=== PATIENT | male | born 1960 | race Caucasian/White ===

== ENCOUNTER → 2016-08-04 | Day surgery (SDC) | payer BC ==
[~2016-08-04] MED LIST: Lactated Ringers 1,000 ML IV SCH; Lactated Ringers 1,000 ML ONE; Propofol 200 MG/20 ML SDV IV ONE
[2016-08-04 14:13] VITALS: BP 108/76
--- NOTE | 2016-08-04 15:39 | OR ---
DATE OF OPERATION: 08/04/2016 PREOPERATIVE DIAGNOSIS: FOLLOWUP POLYPS. POSTOPERATIVE DIAGNOSIS: FOLLOWUP POLYPS. SURGEON: Isaac Myers MD PROCEDURE: FULL-LENGTH COLONOSCOPY WITH POLYP REMOVAL X1. ANESTHESIA: CIVIL ENGINEERING TECHNICIAN. COMPLICATIONS: None. SPECIMEN: Tubular adenoma, hepatic flexure. FINDINGS: 1. Full-length colonoscopy. 2. Bolton diverticulosis, mild. 3. Tubular adenoma x1, less than 0.5 cm. RECOMMENDATIONS: Followup colonoscopy in 5 years. INDICATIONS: The patient had multiple polyps removed 2 years ago, was in for a followup scope. DESCRIPTION OF PROCEDURE: The patient was prepped and draped, placed in left lateral decubitus position. A lubricated Olympus colonoscope was inserted and easily advanced to the cecum. Direct visualization of the ileocecal valve and appendiceal orifice was accomplished. The bowel prep was adequate. Upon withdrawal of the cecal pouch, ascending colon were benign. Just past the hepatic flexure, the patient had a flat tubular adenoma appearing polyp may be hyperplastic as well, removed with cold forceps biopsy x3 in its entirety. Resolution of bleeding was spontaneous. The rest of the transverse, descending colon were benign. The patient does have diverticula extending from the hepatic flexure, all the way through the rectosigmoid junction, very mild in severity without any acute inflammatory change. Left-sided colon had no polyps, mass, ulceration, or bleeding sites. No vascular abnormalities or signs of colitis. The rectal vault was unremarkable. Prominent hemorrhoidal tissue was seen. Retroflexion showed no perianal lesions. Air was then suctioned. Scope was removed without complication. RAYNE/KIMBERLY /[id number]
== END ==
LOC: CC.SDS 11:56
PROVIDERS: ATTEND Family Medicine
DX: Z12.11 Encounter for screening for malignant neoplasm of colon (principal); D12.3 Benign neoplasm of transverse colon; I10 Essential (primary) hypertension; Z88.2 Allergy status to sulfonamides; Z79.899 Other long term (current) drug therapy; Z98.890 Other specified postprocedural states; Z72.0 Tobacco use; Z91.011 Allergy to milk products
CPT/HCPCS: 45380; J2704; J7120

== ENCOUNTER 2018-01-13 04:50 | Emergency (ER) | payer BC ==
[2018-01-13 05:26] VITALS: BP 146/89
[2018-01-13 05:36] LABS: CHLORIDE,CL 101 mEq/L (98-106); SODIUM,NA 139 mEq/L (136-145)
--- NOTE | 2018-01-13 05:43 | EDM.PDOC ---
ED HPI GENERAL MEDICAL PROBLEM - General Chief Complaint: General Stated Complaint: syncope Time Seen by Provider: 01/13/18 05:20 Source of Information: Reports: Patient History Limitations: Reports: No Limitations - History of Present Illness INITIAL COMMENTS - FREE TEXT/NARRATIVE: Patient presents to ER with concerns of his left arm feel "uncoordinated". He went to bed last evening without concern. Awoke to a sudden onset of a charley horse in his right calf that was intense. Got up quickly and was walking to the kitchen and started to feel lightheaded. relates he laid his head down on the counter top due to feeling lightheaded and fainted for a few seconds. She lowered him to the floor. Did not hit his head. No loss of bowel or bladder. Was diaphoretic on his face and chest. After this, his calf is sore and his arm feels "odd". He states if he had to point at something at home or touch something, wasn't sure he could do it. Now that is improved. Continues to have soreness in his calf from the charley horse. Has only had one other syncopal episode in his life and that was related to being sick. He has not had a fever. No URI. No chest pain or shortness of breath. has not had any swelling in his calf. He relates he took 3 magnesium at home as they researched on the internet and felt that it might help his leg cramp but because of the arm, opted to be seen here now. Onset: Today, Sudden Duration: Minutes:, Improving Location: Reports: Upper Extremity, Left, Lower Extremity, Right Quality: Reports: Ache Severity: Mild Associated Symptoms: Reports: Syncope. Denies: Confusion, Chest Pain, Cough, Fever/Chills, Loss of Appetite, Nausea/Vomiting, Shortness of Breath Treatments HAND FABRIC CUTTER: Reports: Other Medication(s) Other Treatments HAND FABRIC CUTTER: magnesium - Related Data Allergies Allergy/AdvReac Type Severity Reaction Status Date / Time Sulfa (Sulfonamide Allergy Cannot Verified 01/13/18 04:56 Antibiotics) Remember Home Meds: Home Meds Calcium Carb/Mag Ox/Zinc Gluc [Dskfukw-Uxovapagk-Jdkz] 1 each PO DAILY 09/26/13 [History] Ibuprofen [Advil] 200 mg PO ASDIRECTED PRN 09/26/13 [History] Magnesium Chloride [Mag-64] 64 mg PO DAILY 09/26/13 [History] Losartan/Hydrochlorothiazide [Losartan-HCTZ 100-25 MG] 1 tab PO DAILY 08/02/16 [ History] Union-3/DHA/Epa/Fish Oil [Union 3 500 Softgel] 1 cap PO DAILY 08/04/16 [History] Past Medical History Cardiovascular History: Reports: Hypertension Social & Family History - Family History Family Medical History: Noncontributory - Tobacco Use Smoking Status *Q: Never Smoker Second Hand Smoke Exposure: No - Living Situation & Occupation Living situation: Reports: Occupation: Employed ED ROS GENERAL - Review of Systems Review Of Systems: See Below Constitutional: Reports: Diaphoresis. Denies: Fever, Chills, Malaise, Weakness HEENT: Reports: No Symptoms Respiratory: Denies: Shortness of Breath, Cough Cardiovascular: Denies: Chest Pain, Edema, Lightheadedness GI/Abdominal: Denies: Abdominal Pain, Nausea, Vomiting : Reports: No Symptoms Musculoskeletal: Reports: No Symptoms Skin: Reports: No Symptoms Neurological: Reports: Syncope ED EXAM, GENERAL - Physical Exam Exam: See Below Exam Limited By: No Limitations General Appearance: Alert, WD/WN, No Apparent Distress Eye Exam: Bilateral Eye: EOMI, PERRL Ears: Normal External Exam, Normal TMs Nose: Normal Inspection, Normal Mucosa, No Blood Throat/Mouth: Normal Inspection, Normal Oropharynx Head: Normocephalic Neck: Normal Inspection, Supple, Non-Tender Respiratory/Chest: No Respiratory Distress, Lungs Clear, Normal Breath Sounds Cardiovascular: Regular Rate, Rhythm GI/Abdominal: Normal Bowel Sounds, Soft, Non-Tender Extremities: Normal Inspection, No Pedal Edema Neurological: Alert, Oriented, CN II-XII Intact, Normal Cognition, Normal Gait, Normal Reflexes, No Motor/Sensory Deficits, Other (no deficit in point to point discretion, good MITCHELL of his hands. Strengths are equal) Skin Exam: Warm, Dry Course - Vital Signs Last Recorded V/S: Last Vital Signs Temp 98.8 F 01/13/18 05:22 Pulse 78 01/13/18 05:22 Resp 18 01/13/18 05:22 BP 146/89 H 01/13/18 05:22 Pulse Ox 97 01/13/18 05:22 - Orders/Labs/Meds Orders: Active Orders 24 hr Category Date Time Status EKG Documentation Completion [RC] STAT Care 01/13/18 05:05 Active Labs: Laboratory Tests 01/13/18 01/13/18 01/13/18 Range/Units 05:10 05:10 05:10 WBC 8.3 (5.0-10.0) 10^3/uL RBC 4.97 (4.50-6.00) 10^6/uL Hgb 15.0 (14.0-18.0) g/dL Hct 42.6 (40.0-54.0) % MCV 85.7 (82.0-94.0) fL MCH 30.2 (27.0-32.0) pg MCHC 35.2 (33.0-38.0) g/dL RDW Coeff of Anais 13.0 (11.0-15.0) % Plt Count 161 (150-400) 10^3/uL Neut % (Auto) 62.5 (35-85) % Lymph % (Auto) 20.7 (10-55) % Thomas % (Auto) 12.5 (0-16) % Eos % (Auto) 3.7 (0-5) % Baso % (Auto) 0.6 (0-3) % Neut # (Auto) 5.17 (1.80-7.00) 10^3/uL Lymph # (Auto) 1.72 (1.00-4.80) 10^3/uL Thomas # (Auto) 1.04 H (0.00-0.80) 10^3/uL Eos # (Auto) 0.31 (0.00-0.45) 10^3/uL Baso # (Auto) 0.05 10^3/uL PT 10.2 (9.7-12.3) SEC INR 0.98 (0.92-1.18) D-Dimer, Quantitative (0.00-0.50) Sodium 139 (136-145) mEq/L Potassium 3.3 L (3.5-5.0) mEq/L Chloride 101 (98-106) mEq/L Carbon Dioxide 33 H (21-32) mmol/L BUN 12 (7-18) mg/dL Creatinine 1.1 (0.7-1.3) mg/dL Est Cr Clr Drug Dosing 88.55 mL/min Estimated GFR (MDRD) > 60 (>=60) mL/min Glucose 108 H (75-99) mg/dL Calcium 8.4 (8.4-10.1) mg/dL Magnesium 2.1 (1.8-2.4) mg/dL Lactate Dehydrogenase 182 (100-190) U/L Creatine Kinase 160 (35-232) U/L Troponin I < 0.017 (0.00-0.06) ng/mL 01/13/18 Range/Units 05:10 WBC (5.0-10.0) 10^3/uL RBC (4.50-6.00) 10^6/uL Hgb (14.0-18.0) g/dL Hct (40.0-54.0) % MCV (82.0-94.0) fL MCH (27.0-32.0) pg MCHC (33.0-38.0) g/dL RDW Coeff of Anais (11.0-15.0) % Plt Count (150-400) 10^3/uL Neut % (Auto) (35-85) % Lymph % (Auto) (10-55) % Thomas % (Auto) (0-16) % Eos % (Auto) (0-5) % Baso % (Auto) (0-3) % Neut # (Auto) (1.80-7.00) 10^3/uL Lymph # (Auto) (1.00-4.80) 10^3/uL Thomas # (Auto) (0.00-0.80) 10^3/uL Eos # (Auto) (0.00-0.45) 10^3/uL Baso # (Auto) 10^3/uL PT (9.7-12.3) SEC INR (0.92-1.18) D-Dimer, Quantitative 0.30 (0.00-0.50) Sodium (136-145) mEq/L Potassium (3.5-5.0) mEq/L Chloride (98-106) mEq/L Carbon Dioxide (21-32) mmol/L BUN (7-18) mg/dL Creatinine (0.7-1.3) mg/dL Est Cr Clr Drug Dosing mL/min Estimated GFR (MDRD) (>=60) mL/min Glucose (75-99) mg/dL Calcium (8.4-10.1) mg/dL Magnesium (1.8-2.4) mg/dL Lactate Dehydrogenase (100-190) U/L Creatine Kinase (35-232) U/L Troponin I (0.00-0.06) ng/mL Meds: Medications Discontinued Medications Generic Name Dose Route Start Last Admin Trade Name Troy PRN Reason Stop Dose Admin Potassium Chloride 10 meq 01/13/18 05:46 01/13/18 05:54 Klor-Con 10 PO 01/13/18 05:47 10 meq NOW ONE Administration - Re-Assessments/Exams Free Text/Narrative Re-Assessment/Exam: 01/13/18 Labs, EKG all normal today except his potassium is low at 3.3. Did give him 10 meq of potassium now. Advised to supplement with potassium at home, may be contributing to his muscle cramps. Other neurological checks/exams are negative today and patient is asymptomatic. Will discharge home. Recheck potassium in 2 weeks. Departure - Departure Time of Disposition: 05:51 Disposition: Home, Self-Care 01 Clinical Impression: Hypokalemia - Discharge Information Referrals: Kartik Gómez PA-C [Primary Care Provider] - Forms: ED Department Discharge Additional Instructions: 1. Push fluids 2. Add oral potassium daily 3. If develop any other symptoms of weakness, blurred vision, neurological changes, return to ER 4. Follow up in 2 weeks for lab to recheck potassium 5. Call with any questions or concerns. - My Orders Last 24 Hours: My Active Orders 01/13/18 05:05 EKG Documentation Completion [RC] STAT - Assessment/Plan Last 24 Hours: My Active Orders 01/13/18 05:05 EKG Documentation Completion [RC] STAT
[2018-01-13] MEDS: Potassium Chloride 10 MEQ Tab.ER PO ONE (05:54)
== END 2018-01-13 06:10 | disposition home or self-care (01) ==
LOC: CC.ED 04:50
DX: E87.6 Hypokalemia (principal); I10 Essential (primary) hypertension; Z88.2 Allergy status to sulfonamides; Z79.899 Other long term (current) drug therapy
CPT/HCPCS: 36415; 80048; 82550; 83615; 83735; 84484; 85025; 85379; 85610; 93005; 99284; A9270-GY

== ENCOUNTER → 2021-07-08 | Day surgery (SDC) | payer BC ==
[~2021-07-08] MED LIST changes: +Ketamine 200 MG/20 ML MDV ONE; -Lactated Ringers 1,000 ML ONE; -Propofol 200 MG/20 ML SDV IV ONE; +Propofol 200 MG/20 ML SDV ONE; +fentaNYL 100 MCG/2 ML SDV ONE
[2021-07-08 11:15] VITALS: BP 131/79; PULSE 78
== END ==
LOC: CC.SDS 09:15
PROVIDERS: ATTEND Family Medicine
DX: Z12.11 Encounter for screening for malignant neoplasm of colon (principal); D12.3 Benign neoplasm of transverse colon; K57.30 Diverticulosis of large intestine without perforation or abscess without bleeding; N40.0 Benign prostatic hyperplasia without lower urinary tract symptoms; I10 Essential (primary) hypertension; E03.9 Hypothyroidism, unspecified; E87.6 Hypokalemia; Z88.2 Allergy status to sulfonamides; Z88.8 Allergy status to other drugs, medicaments and biological substances; Z79.899 Other long term (current) drug therapy
CPT/HCPCS: J2704; J3010; J7120